=== PATIENT | male | born 1990 | race Caucasian/White ===

== ENCOUNTER 2016-10-10 15:03 | Emergency (ER) | payer BC ==
[~2016-10-10] VITALS: Ht 185.4 cm; Wt 72.6 kg
[2016-10-10 15:03] VITALS: BP 140/73
[2016-10-10] MEDS ORDERED: IBUPROFEN 600 MG TABLET PO ONE ×2 (15:27→15:30)
== END 2016-10-10 16:11 | disposition home or self-care (01) ==
LOC: ER 15:06
DX: R07.89 Other chest pain (principal); V43.52XA Car driver injured in collision with other type car in traffic accident, initial encounter; Y93.89 Activity, other specified; Y92.413 State road as the place of occurrence of the external cause; Y99.8 Other external cause status
CPT/HCPCS: 71010; 99283; A4606; Z7610